=== PATIENT | female | born 1970 | race American Indian/Alaskan Native ===

== ENCOUNTER 2017-07-03 11:13 | Emergency (ER) | payer SELFPAY ==
--- NOTE | 2017-07-03 11:53 | XRay Report ---
ROUTINE CHEST, TWO VIEWS: HISTORY: Cough, congestion. The trachea, heart, mediastinal contour, lung fleming and bony thorax are unremarkable. IMPRESSION: Unremarkable chest x-ray.
[2017-07-03] MEDS ORDERED: PROVENTIL IH ONE ×2 (15:47→17:02)
--- NOTE | 2017-07-03 15:53 | Emergency Department Report ---
- General Chief Complaint: Upper Respiratory Infection Stated Complaint: SOB Time Seen by Provider: 07/03/17 14:17 Source: patient Mode of arrival: Ambulatory Limitations: No Limitations - History of Present Illness Initial Comments: This is a 47-year-old female nontoxic, well nourished in appearance, no acute signs of distress presents to the ED with c/o of wheezing, productive cough, and body aches x3 days. Patient describes productive cough as yellow mucus production. Patient denies any headache, chest pain, shortness of breathe, fever , chills, stiff neck, numbness, tingling, blurry vision, difficulty breathing, or abdominal pain. Denies calf pain or tenderness. Past medical history includes hypertension. Patient denies any recent travels. MD Complaint: cough, rhinorrhea, nasal congestion -: days(s) (3) Severity: mild Severity scale (0 -10): 0 Consistency: constant Improves With: nothing Worsens With: nothing Associated Symptoms: rhinorrhea, nasal congestion, cough. denies: fever, chills , myalgias, diaphoresis, headache, sore throat, stiff neck, chest pain, shortness of breath, abdominal pain, nausea, vomiting, diarrhea, dysuria, rash, confusion, right sweats, weight loss, epistaxis, hoarseness, ear pain Treatments Prior to Arrival: none - Related Data Home Medications Medication Instructions Recorded Confirmed Last Taken Simvastatin 20 mg PO QHS 11/24/13 11/24/13 11/22/13 21:00 Previous Rx's Medication Instructions Recorded Last Taken Type ALBUTEROL NEB's [Proventil 0.083% 2.5 mg IH TID PRN #1 box 11/25/13 Unknown Rx NEBS] Albuterol Sulfate [Proventil HFA] 1 - 2 puff IH Q4H PRN #1 hfa.aer.ad 11/25/13 Unknown Rx Fluticasone/Salmeterol [Advair 1 puff IH BID #1 disk.w.dev 11/25/13 Unknown Rx Diskus 250-50 mcg] Loratadine [Claritin] 10 mg PO DAILY #30 tablet 11/25/13 Unknown Rx Sulfamethoxazole/Trimethoprim 1 each PO BID #20 tablet 11/25/13 Unknown Rx [Bactrim Ds] predniSONE [Deltasone] 50 mg PO QDAY #5 tab 11/25/13 Unknown Rx ALBUTEROL Inhaler [ProAir HFA 2 puff IH QID PRN #1 inhalation 07/03/17 Unknown Rx Inhaler] Azithromycin [Zithromax Z-KEITH] 250 mg PO DAILY #6 tablet 07/03/17 Unknown Rx Benzonatate [Tessalon Perle] 100 mg PO Q8H #20 capsule 07/03/17 Unknown Rx predniSONE [Deltasone] 40 mg PO QDAY #10 tab 07/03/17 Unknown Rx Allergies Allergy/AdvReac Type Severity Reaction Status Date / Time No Known Allergies Allergy Verified 07/03/17 11:25 ED Review of Systems ROS: Stated complaint: SOB Other details as noted in HPI Constitutional: denies: chills, fever Eyes: denies: eye pain, eye discharge, vision change ENT: denies: ear pain, throat pain Respiratory: cough. denies: shortness of breath, wheezing Cardiovascular: denies: chest pain, palpitations Endocrine: no symptoms reported Gastrointestinal: denies: abdominal pain, nausea, diarrhea Genitourinary: denies: urgency, dysuria, discharge Musculoskeletal: denies: back pain, joint swelling, arthralgia Skin: denies: rash, lesions Neurological: denies: headache, weakness, paresthesias Psychiatric: denies: anxiety, depression Hematological/Lymphatic: denies: easy bleeding, easy bruising ED Past Medical Hx - Past Medical History Hx Asthma: Yes - Surgical History Hx Cholecystectomy: Yes - Social History Smoking Status: Current Every Day Smoker Substance Use Type: None - Medications Home Medications: Home Medications Medication Instructions Recorded Confirmed Last Taken Type Simvastatin 20 mg PO QHS 11/24/13 11/24/13 11/22/13 21:00 History ALBUTEROL NEB's [Proventil 0.083% 2.5 mg IH TID PRN #1 box 11/25/13 Unknown Rx NEBS] Albuterol Sulfate [Proventil HFA] 1 - 2 puff IH Q4H PRN #1 hfa.aer.ad 11/25/13 Unknown Rx Fluticasone/Salmeterol [Advair 1 puff IH BID #1 disk.w.dev 11/25/13 Unknown Rx Diskus 250-50 mcg] Loratadine [Claritin] 10 mg PO DAILY #30 tablet 11/25/13 Unknown Rx Sulfamethoxazole/Trimethoprim 1 each PO BID #20 tablet 11/25/13 Unknown Rx [Bactrim Ds] predniSONE [Deltasone] 50 mg PO QDAY #5 tab 11/25/13 Unknown Rx ALBUTEROL Inhaler [ProAir HFA 2 puff IH QID PRN #1 inhalation 07/03/17 Unknown Rx Inhaler] Azithromycin [Zithromax Z-KEITH] 250 mg PO DAILY #6 tablet 07/03/17 Unknown Rx Benzonatate [Tessalon Perle] 100 mg PO Q8H #20 capsule 07/03/17 Unknown Rx predniSONE [Deltasone] 40 mg PO QDAY #10 tab 07/03/17 Unknown Rx ED Physical Exam - General Limitations: No Limitations General appearance: alert, in no apparent distress - Head Head exam: Present: atraumatic, normocephalic, normal inspection - Eye Eye exam: Present: normal appearance, PERRL, EOMI. Absent: scleral icterus, conjunctival injection, nystagmus, periorbital swelling, periorbital tenderness Pupils: Present: normal accommodation - ENT ENT exam: Present: normal exam, normal orophraynx, mucous membranes moist, TM's normal bilaterally, normal external ear exam - Neck Neck exam: Present: normal inspection, full ROM. Absent: tenderness, meningismus, lymphadenopathy, thyromegaly - Respiratory Respiratory exam: Present: normal lung sounds bilaterally, wheezes (bilateral upper and lower lobes). Absent: respiratory distress, rales, rhonchi, stridor, chest wall tenderness, accessory muscle use, decreased breath sounds, prolonged expiratory - Cardiovascular Cardiovascular Exam: Present: regular rate, normal rhythm, normal heart sounds. Absent: bradycardia, tachycardia, irregular rhythm, systolic murmur, diastolic murmur, rubs, gallop - GI/Abdominal GI/Abdominal exam: Present: soft, normal bowel sounds. Absent: distended, tenderness, guarding, rebound, rigid, diminished bowel sounds - Rectal Rectal exam: Present: deferred - Extremities Exam Extremities exam: Present: normal inspection, full ROM, normal capillary refill. Absent: tenderness, pedal edema, joint swelling, calf tenderness - Back Exam Back exam: Present: normal inspection, full ROM. Absent: tenderness, CVA tenderness (R), CVA tenderness (L), muscle spasm, paraspinal tenderness, vertebral tenderness, rash noted - Neurological Exam Neurological exam: Present: alert, oriented X3, CN II-XII intact, normal gait, reflexes normal - Psychiatric Psychiatric exam: Present: normal affect, normal mood - Skin Skin exam: Present: warm, dry, intact, normal color. Absent: rash ED Course Vital Signs 07/03/17 11:25 Temperature 97.6 F Pulse Rate 81 Respiratory 20 Rate Blood Pressure 133/63 O2 Sat by Pulse 96 Oximetry - Reevaluation(s) Reevaluation #1: 07/03/17 15:54 Patient is speaking in full sentences with no signs of distress noted. ED Medical Decision Making - Medical Decision Making This is a 47-year-old female that presents with upper resp infection and asthma exacerbation. Patient was examined by me and patient is stable. Chest xray has obtained and dictated by radiologist with normal exam. Patient received DuoNeb and Solu-Medrol 125 mg IM in the Ed whcih patient stated symptoms of wheezing has subsided. Post medical treatment there is no wheezing upon auscultation. Patient was notified of xay results with no further questions noted by the patient. Patient is d/c with zpak and Tessalon Perles and albuterol. Patient was instructed to Follow-up with a primary care doctor in 3-5 days or if symptoms worsen and continue return to emergency room as soon as possible. At time time of discharge, the patient does not seem toxic or ill in appearance. No acute signs of distress noted. Patient agrees to discharge treatment plan of care. No further questions noted by the patient. Critical care attestation.: If time is entered above; I have spent that time in minutes in the direct care of this critically ill patient, excluding procedure time. ED Disposition Clinical Impression: Upper respiratory infection Qualifiers: URI type: unspecified URI Qualified Code(s): J06.9 - Acute upper respiratory infection, unspecified Asthma exacerbation Qualifiers: Asthma severity: mild Asthma persistence: unspecified Qualified Code(s): J45.901 - Unspecified asthma with (acute) exacerbation Disposition: DC-01 TO HOME OR SELFCARE Is pt being admited?: No Does the pt Need Aspirin: No Condition: Stable Instructions: Albuterol (By mouth), Prednisone (By mouth), Azithromycin (By mouth), Asthma (ED), Upper Respiratory Infection (ED) Additional Instructions: Follow-up with a primary care doctor in 3-5 days or if symptoms worsen and continue return to emergency room as soon as possible. Prescriptions: ALBUTEROL Inhaler [ProAir HFA Inhaler] 2 puff IH QID PRN #1 inhalation PRN Reason: Shortness Of Breath Azithromycin [Zithromax Z-KEITH] 250 mg PO DAILY #6 tablet Benzonatate [Tessalon Perle] 100 mg PO Q8H #20 capsule predniSONE [Deltasone] 40 mg PO QDAY #10 tab Referrals: PRIMARY CAREMD [Primary Care Provider] - 3-5 Days [facility] [Outside] - 3-5 Days [facility] [Outside] - 3-5 Days VAN PORTILLO MD [Staff Physician] - 3-5 Days AMY PITT [Referring] - 3-5 Days Forms: Work/School Release Form(ED)
[2017-07-03] MEDS ORDERED: TESSALON PERLES PO ONE (15:54)
[2017-07-03 18:46] VITALS: BP 112/67
== END 2017-07-03 19:02 | disposition home or self-care (01) ==
LOC: ED 11:13
DX: J45.901 Unspecified asthma with (acute) exacerbation (principal); J06.9 Acute upper respiratory infection, unspecified; F17.200 Nicotine dependence, unspecified, uncomplicated
CPT/HCPCS: 71020; 87400; 94640; 96372; 99283; J2930

== ENCOUNTER 2017-07-05 20:15 | Emergency (ER) | payer SELFPAY ==
--- NOTE | 2017-07-05 20:49 | XRay Report ---
FINAL REPORT PROCEDURE: XR CHEST ROUTINE 2V TECHNIQUE: PA and lateral chest radiographs were obtained. CPT 55392 HISTORY: Shortness of breath COMPARISON: No prior studies are available for comparison. FINDINGS: Heart: Normal. Mediastinum/Vessels: Normal. Lungs/Pleural space: Normal. Bony thorax: No acute osseous abnormality. Other: IMPRESSION: Normal examination.
[2017-07-05 20:51] LABS: Basophils % (Auto) 0.6 % (0.0-1.8); Eosinophils % (Auto) 0.4 % (0.0-4.3); Hematocrit 37.3 % (30.3-42.9); Hemoglobin 11.9 gm/dl (10.1-14.3); Mean Corpuscular HGB Conc 32 % (30-34); Mean Corpuscular Hemoglobin 23 pg (28-32); Mean Corpuscular Volume 73 fl (79-97); Platelet Count 203 K/mm3 (140-440); Red Blood Count 5.11 M/mm3 (3.65-5.03); Red Cell Distribution Width 19.5 % (13.2-15.2); White Blood Count 12.2 K/mm3 (4.5-11.0)
[2017-07-05 21:11] LABS: Anion Gap 19 mmol/L; BUN/Creatinine Ratio 15; Blood Urea Nitrogen 9 mg/dL (7-17); Calcium 8.6 mg/dL (8.4-10.2); Carbon Dioxide 22 mmol/L (22-30); Chloride 95.6 mmol/L (98-107); Glucose 114 mg/dL (65-100); Potassium 3.7 mmol/L (3.6-5.0); Sodium 133 mmol/L (137-145)
--- NOTE | 2017-07-05 21:18 | Emergency Department Report ---
ED General Adult HPI - General Chief complaint: Dyspnea/Respdistress Stated complaint: VICENTE Time Seen by Provider: 07/05/17 21:10 Source: patient, EMS Mode of arrival: Stretcher Limitations: No Limitations - History of Present Illness Initial comments: Pranav is a 47-year-old female past medical history of asthma who presents with shortness of breath. Patient states that symptoms have been going on for today she states that her shortness of breath is moderate she tried her albuterol inhaler at home with no relief. Cold and weather change makes her symptoms worse and nothing makes them better. She states that she has been admitted to the ICU before she was very young. However is that she's been an adult she's never been to the ICU oriented. Patient has a dry cough. Patient denies sick contacts she denies having any chest pain or any leg swelling. - Related Data Home Medications Medication Instructions Recorded Confirmed Last Taken Simvastatin 20 mg PO QHS 11/24/13 07/05/17 07/05/17 Previous Rx's Medication Instructions Recorded Last Taken Type Azithromycin [Zithromax Z-KEITH] 250 mg PO DAILY #6 tablet 07/03/17 07/05/17 Rx ALBUTEROL Inhaler [ProAir HFA 2 puff IH QID PRN #1 inhalation 07/05/17 Unknown Rx Inhaler] ALBUTEROL NEB's [Proventil 0.083% 2.5 mg IH TID PRN #1 box 07/05/17 Unknown Rx NEBS] Allergies Allergy/AdvReac Type Severity Reaction Status Date / Time No Known Allergies Allergy Verified 07/05/17 20:18 ED Review of Systems ROS: Stated complaint: VICENTE Other details as noted in HPI Constitutional: denies: chills, fever Eyes: denies: eye pain, eye discharge, vision change ENT: denies: ear pain, throat pain Respiratory: shortness of breath. denies: cough, wheezing Cardiovascular: denies: chest pain, palpitations Endocrine: no symptoms reported Gastrointestinal: denies: abdominal pain, nausea, diarrhea Genitourinary: denies: urgency, dysuria, discharge Musculoskeletal: denies: back pain, joint swelling, arthralgia Skin: denies: rash, lesions Neurological: denies: headache, weakness, paresthesias Psychiatric: denies: anxiety, depression Hematological/Lymphatic: denies: easy bleeding, easy bruising ED Past Medical Hx - Past Medical History Previous Medical History?: Yes Hx Asthma: Yes - Surgical History Past Surgical History?: Yes Hx Cholecystectomy: Yes - Social History Smoking Status: Current Every Day Smoker Substance Use Type: Prescribed - Medications Home Medications: Home Medications Medication Instructions Recorded Confirmed Last Taken Type Simvastatin 20 mg PO QHS 11/24/13 07/05/17 07/05/17 History Azithromycin [Zithromax Z-KEITH] 250 mg PO DAILY #6 tablet 07/03/17 07/05/1707/05 Rx ALBUTEROL Inhaler [ProAir HFA 2 puff IH QID PRN #1 inhalation 07/05/17 Unknown Rx Inhaler] ALBUTEROL NEB's [Proventil 0.083% 2.5 mg IH TID PRN #1 box 07/05/17 Unknown Rx NEBS] ED Physical Exam - General Limitations: No Limitations General appearance: alert, in no apparent distress - Head Head exam: Present: atraumatic, normocephalic - Eye Eye exam: Present: normal appearance - ENT ENT exam: Present: mucous membranes moist - Neck Neck exam: Present: normal inspection - Respiratory Respiratory exam: Present: normal lung sounds bilaterally. Absent: respiratory distress - Cardiovascular Cardiovascular Exam: Present: regular rate, normal rhythm. Absent: systolic murmur, diastolic murmur, rubs, gallop - GI/Abdominal GI/Abdominal exam: Present: soft, normal bowel sounds - Extremities Exam Extremities exam: Present: normal inspection - Back Exam Back exam: Present: normal inspection - Neurological Exam Neurological exam: Present: alert, oriented X3 - Psychiatric Psychiatric exam: Present: normal affect, normal mood - Skin Skin exam: Present: warm, dry, intact, normal color. Absent: rash ED Course Vital Signs 07/05/17 07/05/17 07/05/17 20:18 20:21 20:29 Temperature 99.1 F Pulse Rate 107 H 104 H Respiratory 18 19 18 Rate Blood Pressure 103/56 O2 Sat by Pulse 93 93 Oximetry 07/05/17 07/05/17 07/05/17 20:35 20:36 20:46 Temperature Pulse Rate 106 H 106 H 96 H Respiratory 14 Rate Blood Pressure 103/56 103/56 O2 Sat by Pulse 94 Oximetry 07/05/17 07/05/17 07/05/17 21:00 21:16 21:30 Temperature Pulse Rate 91 H 90 95 H Respiratory 23 37 H 15 Rate Blood Pressure 106/56 106/56 106/56 O2 Sat by Pulse 94 91 91 Oximetry ED Medical Decision Making - Lab Data Result diagrams: 07/05/17 20:41 07/05/17 20:41 Lab Results 07/05/17 07/05/17 Range/Units 20:41 20:41 WBC 12.2 H (4.5-11.0) K/mm3 RBC 5.11 H (3.65-5.03) M/mm3 Hgb 11.9 (10.1-14.3) gm/dl Hct 37.3 (30.3-42.9) % MCV 73 L (79-97) fl MCH 23 L (28-32) pg MCHC 32 (30-34) % RDW 19.5 H (13.2-15.2) % Plt Count 203 (140-440) K/mm3 Lymph % (Auto) 16.4 (13.4-35.0) % Mcmullen % (Auto) 9.9 H (0.0-7.3) % Eos % (Auto) 0.4 (0.0-4.3) % Baso % (Auto) 0.6 (0.0-1.8) % Lymph # 2.0 (1.2-5.4) K/mm3 Mcmullen # 1.2 H (0.0-0.8) K/mm3 Eos # 0.0 (0.0-0.4) K/mm3 Baso # 0.1 (0.0-0.1) K/mm3 Seg Neutrophils % 72.7 H (40.0-70.0) % Seg Neutrophils # 8.9 H (1.8-7.7) K/mm3 Sodium 133 L (137-145) mmol/L Potassium 3.7 (3.6-5.0) mmol/L Chloride 95.6 L (98-107) mmol/L Carbon Dioxide 22 (22-30) mmol/L Anion Gap 19 mmol/L BUN 9 (7-17) mg/dL Creatinine 0.6 L (0.7-1.2) mg/dL Estimated GFR > 60 ml/min BUN/Creatinine Ratio 15 % Glucose 114 H (65-100) mg/dL Calcium 8.6 (8.4-10.2) mg/dL Troponin T < 0.010 (0.00-0.029) ng/mL - EKG Data -: EKG Interpreted by Me - EKG Data 07/05/17 22:44 KG shows sinus tachycardia at rate [address] segment elevation normal access no T-wave inversion - Radiology Data Radiology results: report reviewed, image reviewed Chest x-ray: Shows no acute cardiopulmonary disease - Medical Decision Making Chief medical diagnosis: Asthma exacerbation Differential medical diagnosis: Pneumonia, pneumothorax, hypokalemia, hyponatremia I will get CBC, CMP, chest x-ray, EKG, albuterol, IV dexamethasone, ipratropium Patient is feeling better after breathing treatment and dexamethasone patient will be sent home with albuterol inhaler discussed plan with patient patient agrees to plan additional verbal discharge instructions were given. Patient's lab work and x-rays are all unremarkable. Critical care attestation.: If time is entered above; I have spent that time in minutes in the direct care of this critically ill patient, excluding procedure time. ED Disposition Clinical Impression: Asthma exacerbation Qualifiers: Asthma severity: moderate Asthma persistence: unspecified Qualified Code(s): J45.901 - Unspecified asthma with (acute) exacerbation Disposition: DC-01 TO HOME OR SELFCARE Is pt being admited?: No Does the pt Need Aspirin: No Condition: Stable Instructions: Asthma (ED) Prescriptions: ALBUTEROL Inhaler [ProAir HFA Inhaler] 2 puff IH QID PRN #1 inhalation PRN Reason: Shortness Of Breath ALBUTEROL NEB's [Proventil 0.083% NEBS] 2.5 mg IH TID PRN #1 box PRN Reason: Wheezing Referrals: MABLE ST MD [Staff Physician] - 3-5 Days
[2017-07-05] MEDS ORDERED: PROVENTIL IH ONE (21:47)
[2017-07-05] MEDS ORDERED: DECADRON IV ONE (21:47)
[2017-07-05] MEDS ORDERED: ATROVENT IH ONE (21:48)
[2017-07-05 23:05] VITALS: BP 114/65
== END 2017-07-06 00:11 | disposition home or self-care (01) ==
LOC: ED 20:15
DX: J45.901 Unspecified asthma with (acute) exacerbation (principal); F17.200 Nicotine dependence, unspecified, uncomplicated
CPT/HCPCS: 36415; 71020; 80048; 84484; 85025; 93005; 93010; 96374; 99284; J1100

== ENCOUNTER 2017-07-31 01:36 | Emergency (ER) | payer OTHER ==
[2017-07-31 04:12] LABS: Hematocrit 38.5 % (30.3-42.9); Hemoglobin 12.6 gm/dl (10.1-14.3); Mean Corpuscular HGB Conc 33 % (30-34); Mean Corpuscular Volume 76 fl (79-97); Platelet Count 201 K/mm3 (140-440); Red Blood Count 5.08 M/mm3 (3.65-5.03); White Blood Count 7.9 K/mm3 (4.5-11.0)
[2017-07-31] MEDS ORDERED: NORCO 5/325 PO ONE (04:15)
[2017-07-31 04:18] LABS: Mean Corpuscular Hemoglobin 25 pg (28-32)
[2017-07-31 04:28] LABS: Anion Gap 15 mmol/L; BUN/Creatinine Ratio 16; Blood Urea Nitrogen 13 mg/dL (7-17); Carbon Dioxide 29 mmol/L (22-30); Chloride 96.6 mmol/L (98-107); Glucose 308 mg/dL (65-100); Potassium 4.7 mmol/L (3.6-5.0); Sodium 136 mmol/L (137-145)
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
[2017-07-31 08:22] VITALS: BP 103/72
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
== END 2017-07-31 08:21 | disposition home or self-care (01) ==
LOC: ED 01:36
DX: M54.2 Cervicalgia (principal); R51 Headache; M54.9 Dorsalgia, unspecified; E11.65 Type 2 diabetes mellitus with hyperglycemia; J45.909 Unspecified asthma, uncomplicated; E78.00 Pure hypercholesterolemia, unspecified; Z90.49 Acquired absence of other specified parts of digestive tract; V89.2XXA Person injured in unspecified motor-vehicle accident, traffic, initial encounter; Y93.89 Activity, other specified; Y92.89 Other specified places as the place of occurrence of the external cause; Y99.8 Other external cause status
CPT/HCPCS: 36415; 70450; 72072; 72100; 72125; 72170; 80048; 82962; 84703; 85027; 96372; J1815